=== PATIENT | male | born 1975 | race Hispanic/Latino ===

== ENCOUNTER 2019-02-11 12:43 | Inpatient (IN) | payer SELFPAY ==
[~2019-02-11] VITALS: Ht 165.1 cm; Wt 101.2 kg
[2019-02-11] MEDS ORDERED: SODIUM CHLORIDE 0.9% 1000ML 1,000 ML IV ONE ×2 (13:00→15:42)
[2019-02-11] MEDS ORDERED: IOHEXOL-350 50ML VIAL IV ONE (13:32)
[2019-02-11 13:51] LABS: BASOPHILS % (AUTO) 0.7 % (0.0-5.0); EOSINOPHILS % (AUTO) 0.5 % (0.0-8.0); HEMATOCRIT 40.2 % (42-54); LYMPHOCYTES % (AUTO) 19.3 % (21.0-51.0); MEAN CORPUSCULAR HEMOGLOBIN 30.2 pg (27.0-33.0); MEAN CORPUSCULAR HGB CONC 34.1 g/dL (32.0-36.0); MEAN CORPUSCULAR VOLUME 88.5 fL (79-99); MONOCYTES % (AUTO) 7.6 % (3.0-13.0); NEUTROPHILS % (AUTO) 71.9 % (40.0-77.0); PLATELET COUNT (AUTO) 261 K/uL (130-400); RED BLOOD CELL COUNT(AUTO) 4.54 MIL/uL (4.50-6.20); RED CELL DISTRIBUTION WIDTH 13.2 % (11.0-15.5); WHITE BLOOD COUNT (AUTO) 10.6 K/uL (4.8-10.8)
[2019-02-11 14:15] LABS: ALBUMIN 3.7 g/dL (3.5-5.0); BILIRUBIN,TOTAL 1.6 mg/dL (0.2-1.0); CREATININE 0.8 mg/dL (0.5-1.5); POTASSIUM 4.4 mmol/L (3.5-5.1); TOTAL PROTEIN, SERUM 8.3 g/dL (6.0-8.3)
[2019-02-11] MEDS ORDERED: CLINDAMYCIN 900 MG/D5% WATER 0 ML IV ONE (14:27)
[2019-02-11] MEDS ORDERED: ONDANSETRON HCL 4 MG/2 ML VIAL ONE (14:27)
[2019-02-11] MEDS ORDERED: MORPHINE SULFATE 4 MG/1ML SYG ONE (14:28)
[2019-02-11] MEDS ORDERED: ZOSYN 3.375GM+NS 50ML 50 ML IV ONE (14:37)
[2019-02-11] MEDS ORDERED: LACTULOSE 20 GM/30 ML UDCUP PO PRN (15:15)
[2019-02-11] MEDS ORDERED: ACETAMINOPHEN 325 MG TAB PO PRN (15:15)
[2019-02-11] MEDS ORDERED: ZOLPIDEM TARTRATE 5 MG TAB PO PRN (15:15)
[2019-02-11] MEDS ORDERED: HYDROCODONE/ACETAMINOPHEN 5/325 MG TAB PO PRN (15:15)
[2019-02-11] MEDS ORDERED: VANCOMYCIN 1GM+NS 250ML 250 ML IV ONE (15:28)
[2019-02-11] MEDS ORDERED: VANCOMYCIN PROTOCOL PER PHARMACY IV SCH (16:45)
[2019-02-11 17:20] VITALS: BP 127/75
[2019-02-11] MEDS: SODIUM CHLORIDE 0.9% 1000ML 1,000 ML IV SCH (18:00)
[2019-02-11 20:00] VITALS: BP 138/77
[2019-02-11] MEDS: VANCOMYCIN 1GM+NS 250ML 250 ML IV SCH (21:27)
[2019-02-11] MEDS: ZOSYN 3.375GM+NS 50ML 50 ML IV SCH (21:27)
[2019-02-11] MEDS: FAMOTIDINE 20MG TAB 20 MG TAB PO SCH (21:28)
[2019-02-12] VITALS (7 sets, daily range): BP systolic 122–133; BP diastolic 72–91
[2019-02-12] MEDS: SODIUM CHLORIDE 0.9% 1000ML 1,000 ML IV SCH (01:55)
[2019-02-12 04:55] LABS: HEMATOCRIT 38.7 % (42-54); MEAN CORPUSCULAR HEMOGLOBIN 30.1 pg (27.0-33.0); MEAN CORPUSCULAR HGB CONC 33.8 g/dL (32.0-36.0); PLATELET COUNT (AUTO) 230 K/uL (130-400); RED BLOOD CELL COUNT(AUTO) 4.35 MIL/uL (4.50-6.20); RED CELL DISTRIBUTION WIDTH 13.2 % (11.0-15.5)
[2019-02-12 05:06] LABS: INR 0.96 (0.85-1.15); PROTHROMBIN TIME 10.1 SEC (9.6-11.6)
[2019-02-12 05:07] LABS: CREATININE 0.8 mg/dL (0.5-1.5); POTASSIUM 3.8 mmol/L (3.5-5.1)
[2019-02-12] MEDS: ZOSYN 3.375GM+NS 50ML 50 ML IV SCH ×3 (05:40→21:35)
[2019-02-12] MEDS: VANCOMYCIN 1GM+NS 250ML 250 ML IV SCH ×3 (05:41→21:35)
--- NOTE | 2019-02-12 07:43 | NUR ---
Bedside report given to incoming NOD using SBAR,all questions answered.Pending to follow up Dr. Galvan today
--- NOTE | 2019-02-12 08:25 | NUR ---
CALL PLACED TO DR VILLASENOR REGARDING CONSULT AND HE REFERRED ME TO DR MARADIAGA. I SPOKE WITH DR MARADIAGA WHO REQUEST FOR HOSPITALIST TO CALL HIM AND DR SAAVEDRA WAS NOTIFIED AND GIVEN THE NUMBER TO CALL DR MARADIAGA.
[2019-02-12] MEDS: ENOXAPARIN SODIUM 40 MG/0.4 ML SYRINGE SQ SCH ×2 (08:59→09:47)
[2019-02-12] MEDS: FAMOTIDINE 20MG TAB 20 MG TAB PO SCH ×3 (08:59→21:35)
--- NOTE | 2019-02-12 11:51 | NUR ---
MELANIE Negro met with pt who lives with his mother Ella Kenny [phone]. Pt works in construction, is independent of all ADLS, no DME or HH services. Pt has no PCP or rx coverage, pt does not qualify for any gov assistance. Plan is home at ca Addendum: 02/12/19 at 1153 by EFREN LUCAS Amended: Links added.
[2019-02-13 03:40] VITALS: BP 121/78
[2019-02-13 04:29] LABS: HEMATOCRIT 37.4 % (42-54); MEAN CORPUSCULAR HEMOGLOBIN 30.4 pg (27.0-33.0); MEAN CORPUSCULAR HGB CONC 33.7 g/dL (32.0-36.0); MEAN CORPUSCULAR VOLUME 90.1 fL (79-99); PLATELET COUNT (AUTO) 268 K/uL (130-400); RED BLOOD CELL COUNT(AUTO) 4.15 MIL/uL (4.50-6.20); WHITE BLOOD COUNT (AUTO) 6.8 K/uL (4.8-10.8)
[2019-02-13 04:32] LABS: CREATININE 0.9 mg/dL (0.5-1.5); POTASSIUM 3.7 mmol/L (3.5-5.1)
[2019-02-13] MEDS: VANCOMYCIN 1GM+NS 250ML 250 ML IV SCH ×3 (05:40→20:49)
[2019-02-13] MEDS: ZOSYN 3.375GM+NS 50ML 50 ML IV SCH ×3 (05:40→23:06)
[2019-02-13 07:02] VITALS: BP 126/78
[2019-02-13] MEDS: FAMOTIDINE 20MG TAB 20 MG TAB PO SCH ×2 (09:25→20:49)
[2019-02-13] MEDS: ENOXAPARIN SODIUM 40 MG/0.4 ML SYRINGE SQ SCH (09:27)
[2019-02-13 11:33] VITALS: BP 134/82
[2019-02-13 15:34] VITALS: BP 114/83
--- NOTE | 2019-02-13 18:15 | NUR ---
PERITONSILLAR ABSCESS EXAMINED AREA, PINK IN COLOR WITH SOME PIGMENTS OF RED, SWOLLEN; PT STATED HE FEELS ABSCESS SMALLER AND IS ABLE TO DRINK AND OPEN MOUTH WIDER, INFORMED PT THAT HE CAN GARGLE WITH SALT WATER TO SEE IF THAT WOULD HELP WELL, PT VERBALIZED UNDERSTANDING Addendum: 02/13/19 at 1819 by KARO OLIVO RN Amended: Links added.
[2019-02-13 20:00] VITALS: BP 136/86
[2019-02-14] VITALS: BP 113/70
[2019-02-14 04:00] VITALS: BP 116/77
[2019-02-14] MEDS: VANCOMYCIN 1GM+NS 250ML 250 ML IV SCH (04:50)
[2019-02-14 05:59] LABS: HEMATOCRIT 37.8 % (42-54); MEAN CORPUSCULAR HEMOGLOBIN 30.9 pg (27.0-33.0); MEAN CORPUSCULAR HGB CONC 34.3 g/dL (32.0-36.0); MEAN CORPUSCULAR VOLUME 90.3 fL (79-99); NUCLEATED RED BLOOD CELLS 0.1 % (0.0-0.19); PLATELET COUNT (AUTO) 262 K/uL (130-400); RED BLOOD CELL COUNT(AUTO) 4.19 MIL/uL (4.50-6.20); RED CELL DISTRIBUTION WIDTH 12.8 % (11.0-15.5); WHITE BLOOD COUNT (AUTO) 5.5 K/uL (4.8-10.8)
[2019-02-14 06:22] LABS: CREATININE 0.9 mg/dL (0.5-1.5); POTASSIUM 3.7 mmol/L (3.5-5.1)
[2019-02-14] MEDS: ZOSYN 3.375GM+NS 50ML 50 ML IV SCH (06:36)
[2019-02-14 07:00] VITALS: BP 129/77
--- NOTE | 2019-02-14 08:06 | NUR ---
report given to HUNG HOWARD RN.
--- NOTE | 2019-02-14 08:30 | NUR ---
RECEIVED IN BED ALERT AND ORIENTED X3, DENIES PAIN DURING ASSESSMENT AND NO ACUTE DISTRESS. PLAN OF CARE DISCUSSED WITH PATIENT WHO VOICED UNDERSTANDING.
[2019-02-14] MEDS: FAMOTIDINE 20MG TAB 20 MG TAB PO SCH (09:26)
[2019-02-14] MEDS: ENOXAPARIN SODIUM 40 MG/0.4 ML SYRINGE SQ SCH (09:28)
[2019-02-14 11:00] VITALS: BP 124/67
[2019-02-14] MEDS ORDERED: CLIN300C9 PO (11:27)
[2019-02-14] MEDS ORDERED: NAPR-1023 PO (11:28)
--- NOTE | 2019-02-14 12:30 | NUR ---
PATIENT REPORTED TO HAVE TOLERATED LUNCH VERY WELL AND STILL DENIES ANY DISCOMFORT. WILL PROCEED WITH DISCHARGE.
--- NOTE | 2019-02-14 16:11 | NUR ---
PATIENT RECEIVED DISCHARGE INSTRUCTIONS FROM THE CHARGE NURSE JASON RAMIREZ WHO ALSO REMOVED HIS IV ACCESS. HE LEFT THE UNIT STABLE, AMBULATORY ACCOMPANIED BY THE BRICK POINTER.
== END 2019-02-14 16:40 | disposition home or self-care (01) | DRG 153 ==
LOC: EDH 12:43 → EDHIP 12:44 → 3DH 17:09
PROVIDERS: ADMIT Hospitalist; ATTEND Hospitalist
DX: J36 Peritonsillar abscess (principal); E87.8 Other disorders of electrolyte and fluid balance, not elsewhere classified
CPT/HCPCS: 36415; 70491; 80048; 80053; 80202; 85025; 85027; 85610; 87040; G0378; J1650; J2270; J2405; J2543; J3370; J3490; J7030; Q9967